=== PATIENT | female | born 1980 | race Caucasian/White ===

== ENCOUNTER 2018-07-22 10:42 | Day surgery (SDC) | payer SELFPAY ==
[~2018-07-22] VITALS: Ht 154.9 cm; Wt 85.7 kg
[2018-07-22] MEDS ORDERED: LACTATED RINGERS 1,000 ML IV SCH (11:35)
[2018-07-22 11:37] LABS: HCG UR SG 1.021 (1.003-1.030)
[2018-07-22] MEDS ORDERED: ACET325T14 PO (11:37)
[2018-07-22 11:41] VITALS: BP 120/85
[2018-07-22] MEDS ORDERED: SCOPOLAMINE PATCH, 1.5MG PATCH.TD72 TD ONE (11:59)
[2018-07-22] MEDS ORDERED: GABAPENTIN 300 MG CAPSULE ONE (11:59)
[2018-07-22] MEDS ORDERED: PLEASE ENTER HEIGHT AND WEIGHT MC SCH (12:00)
[2018-07-22] MEDS ORDERED: DEXAMETHASONE 4 MG/ML, 1ML ONE (12:07)
[2018-07-22] MEDS ORDERED: PROPOFOL 10 MG/ML, 20ML ONE (12:07)
[2018-07-22] MEDS ORDERED: KETAMINE 100 MG/ML, 5ML ONE (12:07)
[2018-07-22] MEDS ORDERED: MIDAZOLAM 1 MG/ML, 5ML ONE (12:07)
[2018-07-22] MEDS ORDERED: ONDANSETRON 2MG/ML, 2ML ONE (12:07)
[2018-07-22] MEDS ORDERED: CEFAZOLIN 1,000 MG ONE (12:07)
[2018-07-22] MEDS ORDERED: BUPIVACAINE/EPI 0.5% 1:200K ONE (12:25)
[2018-07-22] MEDS ORDERED: MEPERIDINE/PF 25MG/0.5ML IVPush PRN (12:30)
[2018-07-22] MEDS ORDERED: OXYcodone 5 MG/5 ML ORAL.SOL UDC PO PRN (12:30)
[2018-07-22] MEDS ORDERED: ACETAMINOPHEN 325 MG TABLET PO PRN (12:30)
[2018-07-22] MEDS ORDERED: FENTANYL PF 100 MCG/2ML IV PRN (12:30)
[2018-07-22] MEDS ORDERED: HALOPERIDOL 5 MG/ML IV PRN (12:30)
[2018-07-22] MEDS ORDERED: hydrALAzine 20 MG/ML, 1ML IV PRN (12:30)
[2018-07-22] MEDS ORDERED: HYDROmorphone 1 MG/ML, 1ML VIAL ONE ×2 (12:49→13:14)
[2018-07-22] MEDS ORDERED: OXYcodone 5 MG/5 ML ORAL.SOL UDC ONE (12:49)
[2018-07-22] MEDS ORDERED: FENTANYL PF 100 MCG/2ML ONE (12:49)
[2018-07-22] MEDS: HYDROmorphone 2 MG/ML, 1ML IVPush PRN ×3 (12:50→13:16)
[2018-07-22] MEDS ORDERED: MEPERIDINE/PF 25MG/ML,1ML ONE (13:14)
[2018-07-22] MEDS: PROMETHAZINE 25 MG/ML, 1ML IV PRN ×2 (13:46→13:58)
[2018-07-22] MEDS ORDERED: PROMETHAZINE 25 MG/ML, 1ML ONE (13:52)
== END 2018-07-22 16:30 | disposition home or self-care (01) ==
LOC: OUT 10:42
PROVIDERS: ATTEND Orthopaedic Surgery
DX: S82.62XA Displaced fracture of lateral malleolus of left fibula, initial encounter for closed fracture (principal); X58.XXXA Exposure to other specified factors, initial encounter; Y93.89 Activity, other specified; Y92.89 Other specified places as the place of occurrence of the external cause; Y99.8 Other external cause status
CPT/HCPCS: 27792; 73600; 76000; 81025; C1713; J0690; J1100; J1170; J2250; J2405; J2550; J2704; J3010; J7120